=== PATIENT | male | born 2000 | race Caucasian/White ===

== ENCOUNTER 2024-03-08 15:22 | Emergency (ER) | payer MEDICAID, SELFPAY ==
[2024-03-08 16:36] VITALS: BP 106/71; PULSE 65; RESP 16; TEMP 36.6; O2SAT 100; BMI 23.0
[2024-03-08 17:02] LABS: Basophils % 0.7 %; Eosinophils # 0.4 10^3/uL (0.0-0.8); Eosinophils % 7.2 %; Hematocrit 44.2 % (37-53); Lymphocytes # 1.9 10^3/uL (0.8-4.8); Lymphocytes % 33.2 %; Mean Corpuscular HGB Conc 33.5 g/dL (30-55); Mean Corpuscular Hemoglobin 27.9 pg (27-33); Mean Corpuscular Volume 83.2 fl (82-101); Mean Platelet Volume 9.5 fL (7.4-10.4); Monocytes # 0.3 10^3/uL (0.2-0.9); Monocytes % 4.5 %; Neutrophils # 3.02 10^3/uL (1.8-7.7); Nucleated Red Blood Cells % 0 %; Platelet Count 213 10^3/cmm (157-399); Red Blood Count 5.31 10^6/uL (3.85-5.65); Red Cell Distribution Width 12.2 % (12.1-15.1); White Blood Count 5.58 10^3/uL (3.29-11.43)
[2024-03-08 17:18] LABS: Alanine Aminotransferase 12 U/L (0-41); Albumin Level 4.6 g/dL (3.5-5.2); Alkaline Phosphatase 77 U/L (40-130); Anion Gap 15.2 (5-19); Aspartate Amino Transferase 21 U/L (0-40); Blood Urea Nitrogen 11 mg/dL (6-20); Calcium 9.3 mg/dL (8.5-10.5); Carbon Dioxide 27 mmol/L (22-29); Chloride 103 mmol/L (98-107); Globulin 3.4 g/dL (1.3-4.6); Glomerular Filtration Rate 116.9 mL/min (90-130); Glucose 83 mg/dL (65-115); Lipase 30 U/L (13-60); Osmolality Calculated 291 mOsm/kg (285-295); Potassium 4.2 mmol/L (3.5-5.1); Sodium 141 mmol/L (136-145); Total Bilirubin 0.4 mg/dL (0.15-1.2)
--- NOTE | 2024-03-08 17:54 | ED_ITS ---
HPI - Pediatric GI 2 General: Chief Complaint: Nausea/Vomiting/Diarrhea Stated Complaint: can't eat throws it right back up Time Seen by Provider: 03/08/24 17:49 History of Present Illness: 24-year-old male patient comes in today with episodes of emesis, retching, and difficulty swallowing. Patient reports for the last several months he has had increased episodes of where he feels like he cannot swallow down his food and then has episodes where he spits up his food. Patient reports that does not occur all the time. Patient reports no other symptoms. Patient does use nicotine and vapes. Patient reports minimal to no pain. Related Data Previous Rx's Medication Instructions Recorded pantoprazole 40 mg tablet,delayed 40 mg PO DAILY #30 tabs 03/08/24 release Allergies Allergy/AdvReac Type Severity Reaction Status Date / Time No Known Allergies Allergy Verified 03/08/24 16:41 Pediatric ROS 2 Review of Systems: ALL SYSTEMS: reviewed and no additional remarkable complaints except as stated Pediatric Exam 2 Const: Constitutional General: alert HENMT: Head: normocephalic Throat: posterior oropharynx normal Resp: Effort & Inspection: normal respiratory effort Cardio: Rate: regular rate Rhythm: regular rhythm GI: Palpation: Soft to palpation and nontender Skin: General: turgor normal Extrem: General: normal to inspection Course 2 Vital Signs: Vital signs: Vital Signs Temperature 97.8 F 03/08/24 18:24 Pulse Rate 61 03/08/24 18:24 Respiratory Rate 16 03/08/24 18:24 Blood Pressure 105/73 03/08/24 18:24 Pulse Oximetry 100 03/08/24 18:24 Oxygen Delivery Me thod Room Air 03/08/24 16:36 Medical Decision Making Medical Decision Making Patient comes in today for complaints of episodes of vomiting after eating. Patient also reports some episodes of difficulty swallowing his food. Patient also states that it feels like the food becomes stuck in his esophagus. On exam patient appears nontoxic. Respirations are even. Lungs are clear to auscultation. Posterior pharynx shows some mild cobblestoning. Respirations are even lungs are clear to auscultation. Abdomen soft nontender. Differential diagnosis includes but not limited to esophagitis, GERD, esophageal stricture, peptic ulcer disease, gallbladder disease. Laboratory values were normal. The patient most likely has reflux with most likely some esophageal stricture developing. Recommended pantoprazole and follow-up with gastroenterology/surgeon for EGD. Patient stated understanding agreed with plan. Lab Data 03/08/24 16:55 03/08/24 16:55 Laboratory Results WBC 5.58 10^3/uL (3.29-11.43) 03/08/24 16:55 RBC 5.31 10^6/uL (3.85-5.65) 03/08/24 16:55 Hgb 14.80 g/dL (11.27-16.99) 03/08/24 16:55 Hct 44.2 % (37-53) 03/08/24 16:55 MCV 83.2 fl (82-101) 03/08/24 16:55 MCH 27.9 pg (27-33) 03/08/24 16:55 MCHC 33.5 g/dL (30-55) 03/08/24 16:55 RDW 12.2 % (12.1-15.1) 03/08/24 16:55 Plt Count 213 10^3/cmm (157-399) 03/08/24 16:55 MPV 9.5 fL (7.4-10.4) 03/08/24 16:55 Neut % (Auto) 54.0 % 03/08/24 16:55 Lymph % (Auto) 33.2 % 03/08/24 16:55 [place] % (Auto) 4.5 % 03/08/24 16:55 Eos % (Auto) 7.2 % 03/08/24 16:55 Baso % (Auto) 0.7 % 03/08/24 16:55 Neut # (Auto) 3.02 10^3/uL (1.8-7.7) 03/08/24 16:55 Lymph # (Auto) 1.9 10^3/uL (0.8-4.8) 03/08/24 16:55 [place]flower # (Auto) 0.3 10^3/uL (0.2-0.9) 03/08/24 16:55 Eos # (Auto) 0.4 10^3/uL (0.0-0.8) 03/08/24 16:55 Baso # (Auto) 0.0 10^3/uL (0.0-0.1) 03/08/24 16:55 Nucleated RBC % (auto) 0 % 03/08/24 16:55 Nucleated RBCs # 0.0 /100WBC 03/08/24 16:55 Sodium 141 mmol/L (136-145) 03/08/24 16:55 Potassium 4.2 mmol/L (3.5-5.1) 03/08/24 16:55 Chloride 103 mmol/L (98-107) 03/08/24 16:55 Carbon Dioxide 27 mmol/L (22-29) 03/08/24 16:55 Anion Gap 15.2 (5-19) 03/08/24 16:55 BUN 11 mg/dL (6-20) 03/08/24 16:55 Creatinine 0.8 mg/dL (0.7-1.2) 03/08/24 16:55 GFR Calculation 116.9 mL/min (90-130) 03/08/24 16:55 Glucose 83 mg/dL (65-115) 03/08/24 16:55 Calculated Osmolality 291 mOsm/kg (285-295) 03/08/24 16:55 Calcium 9.3 mg/dL (8.5-10.5) 03/08/24 16:55 Total Bilirubin 0.4 mg/dL (0.15-1.2) 03/08/24 16:55 AST 21 U/L (0-40) 03/08/24 16:55 ALT 12 U/L (0-41) 03/08/24 16:55 Alkaline Phosphatase 77 U/L (40-130) 03/08/24 16:55 Total Protein 8.0 g/dL (6.6-8.7) 03/08/24 16:55 Albumin 4.6 g/dL (3.5-5.2) 03/08/24 16:55 Globulin 3.4 g/dL (1.3-4.6) 03/08/24 16:55 Lipase 30 U/L (13-60) 03/08/24 16:55 No radiology studies performed this visit Discharge Plan Discharge Patient Disposition: Home Clinical Impression: GERD (gastroesophageal reflux disease) Qualifiers: Esophagitis presence: esophagitis presence not specified Qualified Code(s): K 21.9 - Gastro-esophageal reflux disease without esophagitis Condition: Stable Prescriptions: New pantoprazole 40 mg tablet,delayed release (DR/EC) 40 mg PO DAILY Qty: 30 0RF Rx Instructions: take 30 min prior to first meal of day Discharge Orders: Discharge ED (Routine); Ordered 03/08/24 Ordered By: Otilio Stewart Discharge Diet: Soft Mechanical Discharge Activity: Increase activity as tolerated Patient Instructions: Diet for Stomach Ulcers and Gastritis (ED), GERD (Gastroesophageal Reflux Disease) (ED) Activity Restrictions/Additional Instructions: Eat a soft diet to avoid difficulty with swallowing. Take medication as directed. Follow-up with surgeon for further evaluation and treatment. Return to ER for food bolus and inability to swallow. Return to ER for severe pain, severe shortness of breath, or new concerns. Coding Level of Care Code ED Industrial Truck Operator for Piper Cueto
[2024-03-08] MEDS: pantoprazole DR 40 mg Tablet PO (18:14)
[2024-03-08 18:24] VITALS: BP 105/73; PULSE 61; RESP 16; TEMP 36.6; O2SAT 100
--- NOTE | 2024-03-09 07:41 | DCPLANNER ---
messaged gen surg for er f/u
== END 2024-03-08 18:14 | disposition home or self-care (01) ==
PROVIDERS: Emergency Medicine; Emergency Provider Nurse Practitioner Family
DX: K21.9 Gastro-esophageal reflux disease without esophagitis (principal)
CPT/HCPCS: 36415; 80053; 83690; 85025; 99283

== ENCOUNTER 2024-04-22 09:42 | Day surgery (SDC) | payer MEDICAID, SELFPAY ==
[2024-04-22 09:59] VITALS: BP 121/69; PULSE 68; RESP 18; TEMP 36.9; O2SAT 99; BMI 23.0
[2024-04-22] MEDS: sodium chloride 0.9% 1,000 ML 30 ML IV (10:06)
--- NOTE | 2024-04-22 10:45 | P.ANESASSM_ITS ---
Pre-Anesthetic Assessment Height/Weight: Height 1.6 m Weight 58.967 kg Temp Pulse Resp BP Pulse Ox O2 Del Method 98.5 F 68 18 121/69 99 Room Air 04/22/24 09:59 04/22/24 09:59 04/22/24 09:59 04/22/24 09:59 04/22/24 09:59 04/22/24 09:59 Preop Diagnosis: esophageal stenosis Operation Date: 04/22/24 10:45 Proposed Procedures p EGD Dilation- 87621, R13.10(Not Applicable) - Tristin Gross DO Familial anesthetic complications: none Was Beta Viki taken within 24 hours: N/A Was Clonidine taken within 24 hours: N/A Last intake: Intake Last Liquid Date 04/21/24 Last Liquid Time 23:30 Last Solid Date 04/21/24 Last Solid Time 19:00 Social No alcohol vape Exam alert, oriented x 3, clear to auscultation bilaterally and regular rate & rhythm Airway Submandibular: within normal limits Cervical ROM: within normal limits Mallampati: Class I Dentition: full Pulmonary Asthma (as a child) CV/HEM None reported None reported Hepatic None reported GI Gastroesophageal Reflux Disease Metabolic None reported Musc/skel None reported Neuropsych None reported Anesthetic Plan ASA status: 2 Anesthesia: MAC Risk of > 500 ml blood loss (7ml/kg in children): No Medications/Allergies Home Medications Medication Instructions Recorded Confirmed Last Taken Type pantoprazole 40 mg tablet,delayed 40 mg PO BID 30 days #60 tabs 03/19/24 04/22/24 04/21/24 Rx release (Protonix) fluticasone propionate 50 1 spray intranasal DAILY PRN 04/20/24 04/22/24 04/19/24 History mcg/actuation nasal Allergy Symptoms spray,suspension loratadine 10 mg tablet 10 mg PO DAILY PRN Allergy Symptoms 04/20/24 04/22/24 04/21/24 History Allergies Allergy/AdvReac Type Severity Reaction Status Date / Time No Known Allergies Allergy Verified 03/19/24 07:51 Current Medications Generic Name Dose Route Start Last Admin Trade Name Freq PRN Reason Stop Dose Admin Sodium Chloride 1,000 mls @ 30 mls/hr 04/22/24 10:00 04/22/24 10:06 Sodium Chloride 0.9% IV 04/23/24 09:59 30 mls/hr .Q24H ESTHER Administration PFSH Anesthesia Social History Smoking and tobacco/nicotine status: current every day tobacco/nicotine user e- cigarettes Quit status (tobacco/nicotine): has tried quititng Second hand smoke exposure: Yes Alcohol intake: never Substance/Drug Use: never Data Anesthesia Cardiac Studies: No Data to Display
--- NOTE | 2024-04-22 10:53 | P.HP_ITS ---
Providers/Chief Complaint Chief Complaint: R13.10 History of Present Illness Geoffrey Antwon Bales is a 24 year old male Review of Systems General: Reports: 10 or more systems reviewed and unremarkable except in HPI and below Medications/Allergies Home Medications Medication Instructions Recorded Confirmed Last Taken Type pantoprazole 40 mg tablet,delayed 40 mg PO BID 30 days #60 tabs 03/19/24 04/22/24 04/21/24 Rx release (Protonix) fluticasone propionate 50 1 spray intranasal DAILY PRN 04/20/24 04/22/24 04/19/24 History mcg/actuation nasal Allergy Symptoms spray,suspension loratadine 10 mg tablet 10 mg PO DAILY PRN Allergy Symptoms 04/20/24 04/22/24 04/21/24 History Allergies Allergy/AdvReac Type Severity Reaction Status Date / Time No Known Allergies Allergy Verified 03/19/24 07:51 PFSH Acute PFSH: Social History Smoking and tobacco/nicotine status: current every day tobacco/nicotine user e- cigarettes Quit status (tobacco/nicotine): has tried quititng Second hand smoke exposure: Yes Alcohol intake: never Substance/Drug Use: never Vitals/I&O/Wt Last Vital Signs Temp 98.5 F 04/22/24 09:59 Pulse 68 04/22/24 09:59 Resp 18 04/22/24 09:59 BP 121/69 04/22/24 09:59 Pulse Ox 99 04/22/24 09:59 O2 Del Method Room Air 04/22/24 09:59 Weight last 48 hrs Weight 130 lb A&P Assessment and plan (1) GERD (gastroesophageal reflux disease): (2) Dysphagia: Plan EGD with possible balloon dilation Attestations Medical Necessity Statement*: Home Coding Level of Care Code Acute Code for Chg Fwd Diagnoses GERD (gastroesophageal reflux disease) K21.9 Dysphagia R13.10
[2024-04-22 11:13] VITALS: BP 104/57; PULSE 80; RESP 12; TEMP 36.3; O2SAT 97
[2024-04-22 11:20] VITALS: BP 106/63; PULSE 76; RESP 14; O2SAT 97
[2024-04-22 11:30] VITALS: BP 117/71; PULSE 78; RESP 16; O2SAT 99
--- NOTE | 2024-04-22 11:52 | ANE.PACU2 ---
Inpatient post-anesthesia follow up: Airway intact: Yes Vital signs: Temperature 97.3 F Pulse Rate 78 Respiratory Rate 16 Blood Pressure 117/71 Pulse Oximetry 99 Oxygen Delivery Me thod Room Air Oxygen Flow Rate Fraction of Inspir ed Oxygen Hydration adequate: Yes Nausea and vomiting: No Pain level: 1 Mental status: Baseline
== END 2024-04-22 11:52 | disposition home or self-care (01) ==
PROVIDERS: Visit Provider Surgery
DX: R13.10 Dysphagia, unspecified (principal); K29.50 Unspecified chronic gastritis without bleeding; K21.00 Gastro-esophageal reflux disease with esophagitis, without bleeding; K22.2 Esophageal obstruction; J45.909 Unspecified asthma, uncomplicated; F17.200 Nicotine dependence, unspecified, uncomplicated
CPT/HCPCS: 43239; 43249; 88305; 88342; J2704; J7030

== ENCOUNTER 2024-06-14 20:35 | Emergency (ER) | payer MEDICAID, SELFPAY ==
[2024-06-14] VITALS (18 sets, daily range): BP systolic 91–109; BP diastolic 48–73; PULSE 70–87; RESP 18; TEMP 36.9; O2SAT 99–100; BMI 23.0
[2024-06-14 21:30] LABS: Basophils % 0.2 %; Eosinophils # 0.5 10^3/uL (0.0-0.8); Eosinophils % 5.7 %; Hematocrit 46.7 % (37-53); Lymphocytes # 0.8 10^3/uL (0.8-4.8); Lymphocytes % 10.3 %; Mean Corpuscular Hemoglobin 27.6 pg (27-33); Mean Corpuscular Volume 83.7 fl (82-101); Mean Platelet Volume 10.2 fL (7.4-10.4); Monocytes # 0.3 10^3/uL (0.2-0.9); Monocytes % 3.3 %; Neutrophils # 6.47 10^3/uL (1.8-7.7); Neutrophils % 80.3 %; Nucleated Red Blood Cells % 0 %; Platelet Count 205 10^3/cmm (157-399); Red Blood Count 5.58 10^6/uL (3.85-5.65); Red Cell Distribution Width 12.3 % (12.1-15.1); White Blood Count 8.07 10^3/uL (3.29-11.43)
--- NOTE | 2024-06-14 21:36 | ED_ITS ---
HPI - Nausea/Vomiting/Diarrhea 2 General: Chief complaint: Nausea/Vomiting/Diarrhea Stated complaint: Vomiting\Fever Time Seen by Provider: 06/14/24 20:44 Source: patient Mode of arrival: ambulatory Limitations: no limitations History of Present Illness: 24-year-old male states he has had nause a vomiting throughout the day today states has had 4 episodes of vomiting states he has had some abdominal cramping denies any severe pain. He denies any worsening improving factors. No known sick contacts Associated nausea: Yes Associated symtoms: Reports nausea; Denies chest pain, dysuria or headache(s) Related Data Home Medications Medication Instructions Recorded Confirmed fluticasone propionate 50 1 spray intranasal DAILY PRN 04/20/24 05/04/24 mcg/actuation nasal Allergy Symptoms spray,suspension loratadine 10 mg tablet 10 mg PO DAILY PRN Allergy Symptoms 04/20/24 05/04/24 Previous Rx's Medication Instructions Recorded pantoprazole 40 mg tablet,delayed 40 mg PO BID 30 days #60 tabs 03/19/24 release (Protonix) ondansetron 4 mg disintegrating 4 mg PO Q6H PRN nausea and 06/14/24 tablet vomiting #14 tabs Allergies Allergy/AdvReac Type Severity Reaction Status Date / Time No Known Allergies Allergy Verified 05/04/24 11:38 Review of Systems 2 Const: Denies: fever(s), chills, body aches or change in appetite ENMT: Denies: throat pain or dental pain Card: Denies: chest pain Resp: Denies: dyspnea GI: Reports: abdominal pain, nausea and vomiting : Denies: dysuria Musc: Denies: neck pain or back pain Skin/Breast: Denies: rash Neuro: Denies: headache(s) PFSH ED 2 PFSH: Surgical History History of myringotomy History of esophagogastroduodenoscopy (EGD) 04/22/24 Dr Gross Social History Smoking and tobacco/nicotine status: current every day tobacco/nicotine user e- cigarettes Quit status (tobacco/nicotine): has tried quititng Second hand smoke exposure: Yes Alcohol intake: never Substance/Drug Use: never Physical Exam 2 Const: COMMON NORMALS: no acute distress, patient oriented x3 and healthy appearing HENMT: COMMON NORMALS: normocephalic and atraumatic HEAD & SCALP: n ormocephalic and atraumatic Eye: COMMON NORMALS: conjunctivae normal CONJUNCTIVA: Yes conjunctivae normal Neck/C-Spine: COMMON NORMALS: full ROM and supple Chest: COMMONS NORMALS: normal inspection of the chest and normal palpation of entire chest wall Resp: COMMON NORMALS: normal respiratory effort, No retractions, No use of accessory muscles and clear to auscultation bilaterally AUSCULTATION: clear to auscultation bilaterally Cardio: COMMON NORMALS: regular rate, regular rhythm and No murmurs present (Cardio) RATE: regular rate RHYTHM: regular rhythm GI: COMMON NORMALS: Normal to inspection, nondistended, normoactive bowel sounds present, Soft to palpation, non-tender and no masses PALPATION: Yes Soft to palpation Extremity: COMMON NORMALS: normal to inspection and full ROM Neuro: COMMON NORMALS: patient oriented x3, moves all extremities and no focal motor deficits Psych: COMMON NORMALS: mental status grossly normal, Normal thought process present and cooperative THOUGHT PROCESS: Normal thought process present Skin: COMMON NORMALS: no rashes or lesions noted and no wounds GENERAL SKIN EXAM: no rashes or lesions noted Course 2 Vital Signs: Vital signs: Vital Signs Temperature 98.4 F 06/14/24 20:36 Pulse Rate 70 06/14/24 22:13 Respiratory Rate 18 06/14/24 20:36 Blood Pressure 102/50 06/14/24 22:13 Pulse Oximetry 100 06/14/24 22:13 Oxygen Delivery Me thod Room Air 06/14/24 22:13 MDM - Nausea/Vomiting/Diarrhea Medical Decision Making Patient presents with nausea vomiting is likely viral but he feels much improved here after fluids and Zofran he is able to tolerate p.o.'s had no vomiting here abdominal exam is benign blood works normal will prescribe Zofran he is stable for discharge follow-up with PCP return if worsening. Medical Records I reviewed the patient's medical records. Lab Data I reviewed the patient's lab results. 06/14/24 21:11 06/14/24 21:11 Laboratory Results WBC 8.07 10^3/uL (3.29-11.43) 06/14/24 21:11 RBC 5.58 10^6/uL (3.85-5.65) 06/14/24 21:11 Hgb 15.40 g/dL (11.27-16.99) 06/14/24 21:11 Hct 46.7 % (37-53) 06/14/24 21:11 MCV 83.7 fl (82-101) 06/14/24 21:11 MCH 27.6 pg (27-33) 06/14/24 21:11 MCHC 33.0 g/dL (30-55) 06/14/24 21:11 RDW 12.3 % (12.1-15.1) 06/14/24 21:11 Plt Count 205 10^3/cmm (157-399) 06/14/24 21:11 MPV 10.2 fL (7.4-10.4) 06/14/24 21:11 Neut % (Auto) 80.3 % 06/14/24 21:11 Lymph % (Auto) 10.3 % 06/14/24 21:11 [place] % (Auto) 3.3 % 06/14/24 21:11 Eos % (Auto) 5.7 % 06/14/24 21:11 Baso % (Auto) 0.2 % 06/14/24 21:11 Neut # (Auto) 6.47 10^3/uL (1.8-7.7) 06/14/24 21:11 Lymph # (Auto) 0.8 10^3/uL (0.8-4.8) 06/14/24 21:11 [place] # (Auto) 0.3 10^3/uL (0.2-0.9) 06/14/24 21:11 Eos # (Auto) 0.5 10^3/uL (0.0-0.8) 06/14/24 21:11 Baso # (Auto) 0.0 10^3/uL (0.0-0.1) 06/14/24 21:11 Nucleated RBC % (auto) 0 % 06/14/24 21:11 Nucleated RBCs # 0.0 /100WBC 06/14/24 21:11 Sodium 138 mmol/L (136-145) 06/14/24 21:11 Potassium 4.2 mmol/L (3.5-5.1) 06/14/24 21:11 Chloride 102 mmol/L (98-107) 06/14/24 21:11 Carbon Dioxide 27 mmol/L (22-29) 06/14/24 21:11 Anion Gap 13.2 (5-19) 06/14/24 21:11 BUN 10 mg/dL (6-20) 06/14/24 21:11 Creatinine 1.0 mg/dL (0.7-1.2) 06/14/24 21:11 GFR Calculation 90.3 mL/min (90-130) 06/14/24 21:11 Glucose 105 mg/dL (65-115) 06/14/24 21:11 Calculated Osmolality 285 mOsm/kg (285-295) 06/14/24 21:11 Calcium 9.5 mg/dL (8.5-10.5) 06/14/24 21:11 Total Bilirubin 0.4 mg/dL (0.15-1.2) 06/14/24 21:11 AST 25 U/L (0-40) 06/14/24 21:11 ALT 14 U/L (0-41) 06/14/24 21:11 Alkaline Phosphatase 80 U/L (40-130) 06/14/24 21:11 Total Protein 8.0 g/dL (6.6-8.7) 06/14/24 21:11 Albumin 4.5 g/dL (3.5-5.2) 06/14/24 21:11 Globulin 3.5 g/dL (1.3-4.6) 06/14/24 21:11 Lipase 38 U/L (13-60) 06/14/24 21:11 No radiology studies performed this visit Discharge Plan Discharge Patient Disposition: Home Clinical Impression: Vomiting Qualifiers: Migraine intractability: nonintractable Condition: Stable Prescriptions: New ondansetron 4 mg tablet,disintegrating 4 mg PO Q6H PRN (Reason: nausea and vomiting) Qty: 14 0RF No Action pantoprazole [Protonix] 40 mg tablet,delayed release (DR/EC) 40 mg PO BID 30 Days Qty: 60 2RF fluticasone propionate 50 mcg/actuation spray,suspension 1 spray INTRANASAL DAILY PRN (Reason: Allergy Symptoms) loratadine 10 mg tablet 10 mg PO DAILY PRN (Reason: Allergy Symptoms) Discharge Orders: Discharge ED (Routine); Ordered 06/14/24 Ordered By: Catarino Coy Discharge Diet: Advance as tolerated Discharge Activity: Resume usual activity Patient Instructions: Acute Nausea and Vomiting (ED) Coding Level of Care Code ED Rural Health Consultant for Piper Cueto
[2024-06-14 22:00] LABS: Alanine Aminotransferase 14 U/L (0-41); Albumin Level 4.5 g/dL (3.5-5.2); Alkaline Phosphatase 80 U/L (40-130); Anion Gap 13.2 (5-19); Aspartate Amino Transferase 25 U/L (0-40); Blood Urea Nitrogen 10 mg/dL (6-20); Calcium 9.5 mg/dL (8.5-10.5); Carbon Dioxide 27 mmol/L (22-29); Chloride 102 mmol/L (98-107); Creatinine Clr Calc Pharmacy 91.4008; Globulin 3.5 g/dL (1.3-4.6); Glomerular Filtration Rate 90.3 mL/min (90-130); Glucose 105 mg/dL (65-115); Lipase 38 U/L (13-60); Osmolality Calculated 285 mOsm/kg (285-295); Potassium 4.2 mmol/L (3.5-5.1); Sodium 138 mmol/L (136-145); Total Bilirubin 0.4 mg/dL (0.15-1.2)
[2024-06-14] MEDS: ondansetron 2 mg/ML SDV 2 mL 4 MG IVP (22:10)
[2024-06-14] MEDS: sodium chloride 0.9% 1,000 ML 999 ML IV (22:10)
[2024-06-14] MEDS: ondansetron 4 MG Tablet PO (23:21)
== END 2024-06-14 23:15 | disposition home or self-care (01) ==
PROVIDERS: Emergency Provider Emergency Medicine
DX: G43.909 Migraine, unspecified, not intractable, without status migrainosus (principal); R11.10 Vomiting, unspecified; F17.290 Nicotine dependence, other tobacco product, uncomplicated
CPT/HCPCS: 36415; 80053; 83690; 85025; 96361; 96374; 99284; J2405; J7030; Q0162

== ENCOUNTER → 2024-10-12 09:24 | Outpatient (BNVA) | payer OTHER, SELFPAY | PROVIDERS: Visit Provider Psychiatry & Neurology Psychiatry | DX: F31.81 Bipolar II disorder (principal); F41.1 Generalized anxiety disorder; Z79.899 Other long term (current) drug therapy | CPT/HCPCS: 80061; 83036 ==